=== PATIENT | female | born 1975 | race Two or more races ===

== ENCOUNTER 2017-05-14 19:33 | Emergency (ER) | payer BC, OTHER ==
[~2017-05-14] VITALS: Ht 172.7 cm; Wt 55.3 kg
[2017-05-14] MEDS ORDERED: FENTANYL PF 100MCG/2ML AMPUL ONE (19:41)
--- NOTE | 2017-05-14 19:45 | NUR ---
42 yo female bb RA from home. patient is a/o x 4, c/o left knee pain. pt states she twisted it while trying to sit down. patient skin warm and dry, resp even and unlabored. EMS admin 8mg morphine [employer]PER[employer]. awaiting orders from provider
--- NOTE | 2017-05-14 19:57 | NUR ---
medicated pt as ordered
[2017-05-14] MEDS ORDERED: FENTANYL PF 100MCG/2ML AMPUL IV ONE (20:00)
--- NOTE | 2017-05-14 20:13 | NUR ---
biological science technician at bed side for X ray
--- NOTE | 2017-05-14 20:33 | NUR ---
MD Smiley at bed side to explain procedure, moderate sedation for closed reduction of left patella. PT signed consent
[2017-05-14] MEDS ORDERED: PROPOFOL 20 ML IV ONE (20:51)
--- NOTE | 2017-05-14 20:58 | NUR ---
time out for moderate sedation for closed reduction left knee; team members present MD sarmiento, RN caro, RT Andrew, radiation control technician hov. medication used 50 mg bolus diprivan with 20mg x 5 q 3 min for sedation by MD Sarmiento. MD sarmiento reduced knee at 2113, pt placed in knee immobilizer. 2121 patient is now awake a/o x 4. vss. will continue to monitor
[2017-05-14] MEDS ORDERED: IV NS 0.9% 1,000 ML BAG IV ONE ×2 (21:00→21:30)
[2017-05-14] MEDS ORDERED: PROPOFOL 200 MG/20 ML VIAL IV ONE (21:00)
[2017-05-14 22:15] VITALS: BP 106/68
--- NOTE | 2017-05-14 22:16 | NUR ---
Patient discharged to home in stable condition. Written and verbal after care instructions given. Patient verbalizes understanding of instruction. IV removed. Catheter intact and site benign. Pressure and 4x4 applied to site. No bleeding noted.VITAL SIGNS UPDATED.
== END 2017-05-14 22:16 | disposition home or self-care (01) ==
LOC: ER 19:34
DX: S83.095A Other dislocation of left patella, initial encounter (principal); X50.1XXA Overexertion from prolonged static or awkward postures, initial encounter; Y93.89 Activity, other specified; Y92.89 Other specified places as the place of occurrence of the external cause; Y99.8 Other external cause status
CPT/HCPCS: 27560; 73560; 96361; 96374; 99152; 99285; A4606; J2704; J3010; Z7610